=== PATIENT | female | born 1960 | race Caucasian/White ===

== ENCOUNTER → 2016-09-10 | Outpatient (CLI) | payer MEDICAID | LOC: VM.MRI 09:14 | PROVIDERS: ATTEND Internal Medicine | DX: M54.10 Radiculopathy, site unspecified (principal); M46.96 Unspecified inflammatory spondylopathy, lumbar region; Z98.1 Arthrodesis status | CPT/HCPCS: 72148 ==

== ENCOUNTER 2017-12-08 04:37 | Observation (INO) | payer MEDICAID ==
[2017-12-08] MEDS ORDERED: Sodium Chloride 0.9% 10 ML Syringe FLUSH PRN (05:03)
[2017-12-08] MEDS ORDERED: Albuterol/Ipratropium 3.0-0.5 MG/3 ML Neb Soln NEB ONE (05:04)
[2017-12-08] MEDS ORDERED: oxyCODONE 5 MG Tab PO ONE (05:23)
[2017-12-08] MEDS ORDERED: methylPREDNISolone Sodium Succinate 125 MG/2 ML SDV IV ONE (06:27)
[2017-12-08] MEDS ORDERED: LORazepam 2 MG/ML SDV IVPUSH ONE (06:27)
[2017-12-08 06:48] LABS: CHLORIDE,CL 105 mmol/L (98-107); SODIUM,NA 140 mmol/L (136-145)
--- NOTE | 2017-12-08 08:21 | EDM.PDOC ---
ED HPI GENERAL MEDICAL PROBLEM - General Chief Complaint: Respiratory Problem Stated Complaint: DYSPNEA Time Seen by Provider: 12/08/17 04:42 Source of Information: Reports: Patient, Family History Limitations: Reports: No Limitations - History of Present Illness INITIAL COMMENTS - FREE TEXT/NARRATIVE: This ER note can be used as an admission H and P. Pt. underwent a Lynx procedure on Tuesday and has been having issues with breathing difficulty since the surgery. Pt. was admitted overnight due to wheezing, post op pain, and increased work of breathing. Pt. was discharged the next day and states that she has been having respiratory difficulty since discharge. Pt. has a history of asthma and states that she feels like her asthma symptoms are causing her problems. She denies any fever or chills. No chest pain or shortness of breath. She also complains that she is unable to take a deep breath/cough due to her post operative pain. Onset: Today Onset Date: 12/06/17 Duration: Constant Location: Reports: Chest, Abdomen Quality: Reports: Ache Severity: Moderate Associated Symptoms: Reports: Loss of Appetite, Malaise, Shortness of Breath Abdomen Pain Score (Numeric/FACES): 6 - Related Data Allergies Allergy/AdvReac Type Severity Reaction Status Date / Time iodine Allergy Rash Verified 12/08/17 05:00 Latex, Natural Rubber Allergy Rash Verified 12/08/17 05:00 methadone Allergy Rash Verified 12/08/17 05:00 piroxicam [From Feldene] Allergy Hives Verified 12/08/17 05:00 procaine HCl [From Novocain] Allergy Shortness Verified 12/08/17 05:00 of Breath propoxyphene napsylate Allergy Cannot Verified 12/08/17 05:00 [From Darvocet-N 100] Remember cephalexin monohydrate AdvReac Nausea Verified 12/08/17 05:00 [From Keflex] METALS Allergy Cannot Uncoded 12/08/17 05:00 Remember CONTRAST DYE AdvReac Nausea Uncoded 12/08/17 05:00 pumpkin flavor AdvReac Nausea and Uncoded 12/08/17 05:00 Vomiting Home Meds: Home Meds Albuterol [Ventolin HFA] 2 puff INH Q4H PRN 08/14/13 [History] Simvastatin [Zocor] 40 mg PO BEDTIME 12/10/13 [History] Cyanocobalamin (Vitamin B12) [Vitamin B12] 2,000 mcg PO BEDTIME 04/08/15 [ History] PARoxetine [Paxil] 60 mg PO DAILY 04/08/15 [History] Acetaminophen [Tylenol] 650 mg PO 6XDAY 12/08/17 [History] Albuterol/Ipratropium [DuoNeb 3.0-0.5 MG/3 ML] 3 ml INH Q4HR PRN 12/08/17 [ History] Budesonide [Pulmicort] 0.5 mg IH BID 12/08/17 [History] Celecoxib 200 mg PO BID 12/08/17 [History] Cyclobenzaprine [Flexeril] 10 mg PO TID PRN 12/08/17 [History] Fluticasone Propionate [Flonase] 16 gm NS ASDIRECTED PRN 12/08/17 [History] Formoterol Fumarate [Perforomist] 20 mcg IH BID 12/08/17 [History] Gabapentin [Neurontin] 300 mg PO BEDTIME 12/08/17 [History] Mirtazapine 45 mg PO BEDTIME 12/08/17 [History] Montelukast [Singulair] 10 mg PO DAILY 12/08/17 [History] Tiotropium [Spiriva] 18 mcg INH BID 12/08/17 [History] oxyCODONE 2 tab PO Q4H PRN 12/08/17 [History] Past Medical History Other Musculoskeletal History: has had prior surgeries - Past Surgical History GI Surgical History: Reports: Other (See Below) Other GI Surgeries/Procedures: linx procedure Social & Family History - Tobacco Use Smoking Status *Q: Never Smoker Second Hand Smoke Exposure: Yes - Alcohol Use Days Per Week of Alcohol Use: 0 - Recreational Drug Use Recreational Drug Use: No Drug Use in Last 12 Months: No ED ROS GENERAL - Review of Systems Review Of Systems: See Below Constitutional: Reports: No Symptoms HEENT: Reports: No Symptoms Respiratory: Reports: Shortness of Breath Cardiovascular: Reports: No Symptoms Endocrine: Reports: No Symptoms GI/Abdominal: Reports: Abdominal Pain (post op). Denies: Black Stool, Bloody Stool, Diarrhea, Hematochezia, Melena : Reports: No Symptoms Musculoskeletal: Reports: No Symptoms Skin: Reports: No Symptoms Neurological: Reports: No Symptoms Psychiatric: Reports: No Symptoms Hematologic/Lymphatic: Reports: No Symptoms Immunologic: Reports: No Symptoms ED EXAM, GENERAL - Physical Exam Exam: See Below Exam Limited By: No Limitations General Appearance: Alert, WD/WN, No Apparent Distress Eye Exam: Bilateral Eye: Normal Fundi, Normal Inspection, PERRL Ears: Normal External Exam, Normal Canal, Hearing Grossly Normal, Normal TMs Ear Exam: Bilateral Ear: Auricle Normal, Canal Normal, TM normal Nose: Normal Inspection, Normal Mucosa, No Blood Throat/Mouth: Normal Inspection, Normal Lips, Normal Teeth, Normal Gums, Normal Oropharynx, Normal Voice, No Airway Compromise Head: Atraumatic, Normocephalic Neck: Normal Inspection, Supple, Non-Tender, Full Range of Motion Respiratory/Chest: Rhonchi, Wheezing, Other (minimal wheezing. Ronchi is heard primarily on auscultation of her upper airways) Cardiovascular: Normal Peripheral Pulses, Regular Rate, Rhythm, No Edema, No Gallop, No JVD, No Murmur, No Rub Peripheral Pulses: 3+: Radial (L), Radial (R) GI/Abdominal: Normal Bowel Sounds, Soft, No Distention, Tender (diffusely tender throughout). No: No Organomegaly (Female) Exam: Normal External Exam, Normal Speculum Exam, Normal Bimanual Exam Rectal (Female) Exam: Normal Exam, Normal Rectal Tone Back Exam: Normal Inspection, Full Range of Motion, NT Extremities: Normal Inspection, Normal Range of Motion, Non-Tender, Normal Capillary Refill, No Pedal Edema Neurological: Alert, Oriented, CN II-XII Intact, Normal Cognition, Normal Gait, Normal Reflexes, No Motor/Sensory Deficits Psychiatric: Normal Affect, Normal Mood Skin Exam: Warm, Dry, Intact, Normal Color, No Rash Lymphatic: No Adenopathy EKG INTERPRETATION Rhythm: NSR [place]: Normal P-Wave: Present QRS: Normal ST-T: Normal QT: Normal Course - Vital Signs Last Recorded V/S: Last Vital Signs Temp 37.1 C 12/08/17 04:42 Pulse 84 12/08/17 06:44 Resp 29 H 12/08/17 06:44 BP 121/67 12/08/17 06:44 Pulse Ox 91 L 12/08/17 06:44 - Orders/Labs/Meds Orders: Active Orders 24 hr Category Date Time Status Patient Status [ADT] Routine ADT 12/08/17 08:24 Active EKG Documentation Completion [RC] STAT Care 12/08/17 05:04 Active Oxygen Therapy [RC] PRN Care 12/08/17 08:02 Inactive RT Aerosol Therapy [RC] ASDIRECTED Care 12/08/17 05:05 Active Chest 2V [CR] Stat Exams 12/08/17 05:03 Taken Sodium Chloride 0.9% [Saline Flush] Med 12/08/17 05:03 Active 10 ml FLUSH ASDIRECTED PRN Peripheral IV Insertion Adult [OM.PC] Routine Oth 12/08/17 05:04 Ordered Medication Orders Sodium Chloride (Saline Flush) 10 ml FLUSH ASDIRECTED PRN PRN Reason: Keep Vein Open Labs: Laboratory Tests 12/08/17 12/08/17 12/08/17 Range/Units 06:15 06:15 07:00 WBC 6.1 (4.0-10.0) x10^3/uL RBC 4.41 (4.00-5.50) x10^6/uL Hgb 13.1 D (12.0-16.0) g/dL Hct 40.0 (33.0-47.0) % MCV 90.7 (78.0-93.0) fL MCH 29.7 (26.0-32.0) pg MCHC 32.8 (32.0-36.0) g/dL RDW Coeff of Perla 14.2 (10.0-15.0) % Plt Count 269 D (130-400) x10^3/uL Neut % (Auto) 50.7 (50.0-80.0) % Lymph % (Auto) 35.7 (25.0-50.0) % [place] % (Auto) 9.7 (2.0-11.0) % Eos % (Auto) 3.6 (0.0-4.0) % Baso % (Auto) 0.3 (0.2-1.2) % PT 10.0 (9.8-11.8) SEC INR 0.9 L (2.0-3.5) Sodium 140 (136-145) mmol/L Potassium 3.6 (3.5-5.1) mmol/L Chloride 105 (98-107) mmol/L Carbon Dioxide 25 (21-32) mmol/L Anion Gap 13.6 BUN 18 (7-18) mg/dL Creatinine 0.9 (0.55-1.02) mg/dL Est Cr Clr Drug Dosing TNP Estimated GFR (MDRD) > 60 Glucose 121 H (74-106) mg/dL Lactic Acid (0.4-2.0) mmol/L Calcium 9.5 (8.5-10.1) mg/dL Corrected Calcium 9.98 (8.5-10.1) mg/dL Total Bilirubin 0.3 (0.2-1.0) mg/dL AST 27 (15-37) U/L ALT 49 (14-59) U/L Alkaline Phosphatase 174 H (46-116) U/L Troponin I < 0.017 (<=0.056) ng/mL C-Reactive Protein 1.5 H (<=0.9) mg/dL NT-Pro-B Natriuret Pep 31 (<=125) pg/mL Total Protein 7.1 (6.4-8.2) g/dL Albumin 3.4 (3.4-5.0) g/dL Globulin 3.7 Albumin/Globulin Ratio 0.92 04/18 Range/Units 07:00 WBC (4.0-10.0) x10^3/uL RBC (4.00-5.50) x10^6/uL Hgb (12.0-16.0) g/dL Hct (33.0-47.0) % MCV (78.0-93.0) fL MCH (26.0-32.0) pg MCHC (32.0-36.0) g/dL RDW Coeff of Perla (10.0-15.0) % Plt Count (130-400) x10^3/uL Neut % (Auto) (50.0-80.0) % Lymph % (Auto) (25.0-50.0) % [place] % (Auto) (2.0-11.0) % Eos % (Auto) (0.0-4.0) % Baso % (Auto) (0.2-1.2) % PT (9.8-11.8) SEC INR (2.0-3.5) Sodium (136-145) mmol/L Potassium (3.5-5.1) mmol/L Chloride (98-107) mmol/L Carbon Dioxide (21-32) mmol/L Anion Gap BUN (7-18) mg/dL Creatinine (0.55-1.02) mg/dL Est Cr Clr Drug Dosing Estimated GFR (MDRD) Glucose (74-106) mg/dL Lactic Acid 2.1 H* (0.4-2.0) mmol/L Calcium (8.5-10.1) mg/dL Corrected Calcium (8.5-10.1) mg/dL Total Bilirubin (0.2-1.0) mg/dL AST (15-37) U/L ALT (14-59) U/L Alkaline Phosphatase (46-116) U/L Troponin I (<=0.056) ng/mL C-Reactive Protein (<=0.9) mg/dL NT-Pro-B Natriuret Pep (<=125) pg/mL Total Protein (6.4-8.2) g/dL Albumin (3.4-5.0) g/dL Globulin Albumin/Globulin Ratio Meds: Medications Generic Name Dose Route Start Last Admin Trade Name Freq PRN Reason Stop Dose Admin Sodium Chloride 10 ml 12/08/17 05:03 Saline Flush FLUSH ASDIRECTED PRN Keep Vein Open Discontinued Medications Generic Name Dose Route Start Last Admin Trade Name Freq PRN Reason Stop Dose Admin Albuterol/Ipratropium 3 ml 12/08/17 05:04 12/08/17 05:20 Duoneb 3.0-0.5 Mg/3 Ml NEB 12/08/17 05:05 3 ml ONETIME ONE Administration Lorazepam 1 mg 12/08/17 06:27 12/08/17 06:45 Ativan IVPUSH 12/08/17 06:28 1 mg ONETIME ONE Administration Methylprednisolone Sodium Succinate 125 mg 12/08/17 06:27 12/08/17 06:48 Solu-Medrol IV 12/08/17 06:28 125 mg ONETIME ONE Administration Oxycodone HCl 5 mg 12/08/17 05:23 12/08/17 05:55 Oxycodone PO 12/08/17 05:24 5 mg ONETIME ONE Administration - Radiology Interpretation Free Text/Narrative:: No obvious infiltrate seen. Pt. didn't take a deep breath. Large amount of air seen in abdomen consistent with postoperative changes. - Re-Assessments/Exams Free Text/Narrative Re-Assessment/Exam: 12/08/17 08:51 Pt. was given a duoneb breathing treatment and solu medrol 125mg IV. She is requesting pain medication, and was given oxycodone 5mg PO. She was also quite anxious and was given ativan 1mg IV. Departure - Departure Time of Disposition: 08:48 Disposition: Refer to Observation Condition: Good Clinical Impression: Acute asthma, Asthma exacerbation - Discharge Information Referrals: PCP,Unobtain [Primary Care Provider] - Forms: ED Department Discharge - My Orders Last 24 Hours: My Active Orders 12/08/17 05:03 Chest 2V [CR] Stat Sodium Chloride 0.9% [Saline Flush] 10 ml FLUSH ASDIRECTED PRN 12/08/17 05:04 EKG Documentation Completion [RC] STAT Peripheral IV Insertion Adult [OM.PC] Routine 12/08/17 05:05 RT Aerosol Therapy [RC] ASDIRECTED 12/08/17 08:02 Oxygen Therapy [RC] PRN 12/08/17 08:24 Patient Status [ADT] Routine - Assessment/Plan Last 24 Hours: My Active Orders 12/08/17 05:03 Chest 2V [CR] Stat Sodium Chloride 0.9% [Saline Flush] 10 ml FLUSH ASDIRECTED PRN 12/08/17 05:04 EKG Documentation Completion [RC] STAT Peripheral IV Insertion Adult [OM.PC] Routine 12/08/17 05:05 RT Aerosol Therapy [RC] ASDIRECTED 12/08/17 08:02 Oxygen Therapy [RC] PRN 12/08/17 08:24 Patient Status [ADT] Routine Assessment:: asthma exacerbation Plan: Admit observation. Admission was offered to Dr. Cintron out of courtesy. Will have her work with incentive spirometry and ambulation. She needs to improve pulmonary toilet or runs the risk of developing pneumonia. Will reevaluate a chest x-ray later this afternoon, as her inspiration on her initial exam was supoptimal. Pt. is a code level 1.
[2017-12-08] MEDS ORDERED: oxyCODONE 5 MG Tab PO PRN (09:06)
[2017-12-08] MEDS ORDERED: Cyclobenzaprine 10 MG Tab PO PRN (09:06)
[2017-12-08] MEDS ORDERED: Albuterol/Ipratropium 3.0-0.5 MG/3 ML Neb Soln INH PRN (09:30)
[2017-12-08] MEDS: PARoxetine 20 MG Tab PO SCH (09:43)
[2017-12-08] MEDS: Celecoxib 100 MG Cap PO SCH ×2 (09:43→19:44)
[2017-12-08] MEDS: Budesonide 0.5 MG/2 ML Neb Susp INH SCH ×2 (10:02→19:45)
[2017-12-08] MEDS ORDERED: Albuterol 0.083% 2.5 MG/3 ML Neb Soln INH PRN (11:00)
[2017-12-08] MEDS ORDERED: Acetaminophen 325 MG Tab PO SCH (11:00)
[2017-12-08] MEDS: Albuterol/Ipratropium 3.0-0.5 MG/3 ML Neb Soln NEB SCH ×4 (11:04→22:23)
[2017-12-08] MEDS ORDERED: Magnesium Hydroxide 400 MG/5 ML Susp 30 ML Cup PO ONE (11:23)
[2017-12-08] MEDS: Fluticasone Propionate Nasal Spray 16 GM Bottle NASBOTH SCH (11:43)
[2017-12-08] MEDS ORDERED: Albuterol 0.083% 2.5 MG/3 ML Neb Soln INH SCH (13:00)
[2017-12-08] MEDS ORDERED: Ipratropium 0.02% 0.5 MG/2.5 ML Neb Soln INH SCH (13:00)
[2017-12-08] MEDS: oxyCODONE 5 MG Tab PO PRN (16:24)
[2017-12-08] MEDS: methylPREDNISolone Sodium Succinate 40 MG/1 ML SDV IVPUSH SCH (18:22)
[2017-12-08] MEDS ORDERED: Gabapentin 300 MG Cap PO SCH (20:00)
[2017-12-08] MEDS ORDERED: Montelukast 10 MG Tab PO SCH (20:00)
[2017-12-08] MEDS ORDERED: Sodium Phosphate,Monobasic/Sodium Phosphate,Dibasic Enema 133 ML Bottle RECTAL ONE (20:00)
[2017-12-08] MEDS ORDERED: Mirtazapine 15 MG Tab PO SCH (20:00)
[2017-12-08] MEDS ORDERED: Simvastatin 40 MG Tab PO SCH (20:00)
[2017-12-08] MEDS ORDERED: Cyanocobalamin (Vitamin B12) 1,000 MCG Tab PO SCH (20:00)
[2017-12-09] MEDS: Albuterol/Ipratropium 3.0-0.5 MG/3 ML Neb Soln NEB SCH ×4 (02:59→14:30)
[2017-12-09] MEDS: methylPREDNISolone Sodium Succinate 40 MG/1 ML SDV IVPUSH SCH (06:08)
[2017-12-09] MEDS: Budesonide 0.5 MG/2 ML Neb Susp INH SCH (07:11)
[2017-12-09 07:34] LABS: CHLORIDE,CL 107 mmol/L (98-107); SODIUM,NA 141 mmol/L (136-145)
[2017-12-09] MEDS: PARoxetine 20 MG Tab PO SCH (09:04)
[2017-12-09] MEDS: Celecoxib 100 MG Cap PO SCH (09:06)
[2017-12-09] MEDS: Fluticasone Propionate Nasal Spray 16 GM Bottle NASBOTH SCH (09:10)
[2017-12-09] MEDS ORDERED: Magnesium Citrate Solution 296 ML Bottle PO ONE (10:36)
[2017-12-09] MEDS: oxyCODONE 5 MG Tab PO PRN (11:43)
--- NOTE | 2017-12-09 14:37 | PCM.DCSUM1 ---
Discharge Summary - Hospital Course HPI Initial Comments: Patient presented to the ED at [facility] yesterday complaining of trouble breathing. Pt. underwent a Lynx procedure on Tuesday and has been having issues with breathing difficulty since the surgery. Pt. was admitted overnight due to wheezing, post op pain, and increased work of breathing. Pt. was discharged the next day and states that she has been having respiratory difficulty since discharge. Pt. has a history of asthma and states that she feels like her asthma symptoms are causing her problems. She denies any fever or chills. No chest pain or shortness of breath. She also complains that she is unable to take a deep breath /cough due to her post operative pain. Patient is currently taking Oxycodone for pain. - Discharge Data Discharge Date: 12/09/17 Discharge Disposition: Home, Self-Care 01 Condition: Good - Discharge Diagnosis/Problem(s) (1) Asthma exacerbation SNOMED Code(s): 189200248 ICD Code: J45.901 - UNSPECIFIED ASTHMA WITH (ACUTE) EXACERBATION Status: Acute Priority: Medium Current Visit: Yes Qualifiers: Asthma severity: mild Asthma persistence: intermittent Qualified Code(s) : J45.21 - Mild intermittent asthma with (acute) exacerbation (2) Fecal retention SNOMED Code(s): 29203951 ICD Code: K59.00 - CONSTIPATION, UNSPECIFIED Status: Acute Priority: Medium Current Visit: Yes Qualifiers: Constipation type: slow transit constipation Qualified Code(s): K59.01 - Slow transit constipation - Patient Summary/Data Operative Procedure(s) Performed: None Consults: Physical Therapy Labs Pending at D/C: None Recommended Follow-up Testing/Procedures: None Hospital Course: From a respiratory standpoint, patient did well. No worsening acute problems. Patient has a cough, but it is believed it is from her uncontrolled GERD. No SOB. Patient is having issues with constipation that started before she even had surgery last Tuesday. She was given Mag Citrate, Enema, MOM without any good results. No issues with urination. Patient is ambulating in the hallways without problems. Pain has been controlled. Her pain does worsen with trying to have a BM. - Patient Instructions Diet: Heart Healthy Diet Activity: As Tolerated (need to walk more at home), No Strenuous Activities Driving: Do Not Drive Showering/Bathing: May Shower Wound/Incision Care: Keep Operative Site/Wound Site Clean and Dry Notify Provider of: Fever, Increased Pain, Nausea and/or Vomiting - Discharge Plan Home Medications: Home Meds Albuterol [Ventolin HFA] 2 puff INH Q4H PRN 08/14/13 [History] Simvastatin [Zocor] 40 mg PO BEDTIME 08/14/13 [History] Cyanocobalamin (Vitamin B12) [Vitamin B12] 2,000 mcg PO BEDTIME 04/08/15 [ History] PARoxetine [Paxil] 60 mg PO DAILY 04/08/15 [History] Acetaminophen [Tylenol] 650 mg PO Q6H 12/08/17 [History] Albuterol/Ipratropium [DuoNeb 3.0-0.5 MG/3 ML] 3 ml INH Q4HR PRN 12/08/17 [ History] Budesonide [Pulmicort] 0.5 mg NEB BID 12/08/17 [History] Celecoxib 200 mg PO BID 12/08/17 [History] Cholecalciferol (Vitamin D3) [D3-2000] 2,000 units PO TID 12/08/17 [History] Cyclobenzaprine [Flexeril] 10 mg PO TID PRN 12/08/17 [History] Fluticasone Propionate [Flonase] 2 spray NASBOTH DAILY PRN 12/08/17 [History] Formoterol Fumarate [Perforomist] 20 mcg NEB BID 12/08/17 [History] Gabapentin [Neurontin] 300 mg PO BEDTIME 12/08/17 [History] Mirtazapine 45 mg PO BEDTIME 12/08/17 [History] Montelukast [Singulair] 10 mg PO DAILY 12/08/17 [History] Non-Formulary Medication [NF Drug] 1 tab PO BID 12/08/17 [History] Non-Formulary Medication [NF Drug] 1 tab PO BID 12/08/17 [History] Non-Formulary Medication [NF Drug] 1 tab PO DAILY@0800 12/08/17 [History] Non-Formulary Medication [NF Drug] 2 tab PO BID 12/08/17 [History] Non-Formulary Medication [NF Drug] 2 tab PO DAILY@1200,1800 12/08/17 [History] Tiotropium [Spiriva HandiHaler] 18 mcg INH BID 12/08/17 [History] oxyCODONE 10 mg PO Q4H PRN 12/08/17 [History] Patient Handouts: Constipation, Adult, Preventing Constipation After Surgery, Asthma, Adult Referrals: Lisa Cintron DO [Physician] - 12/13/17 - Discharge Summary/Plan Comment DC Time >30 min.: Yes Discharge Summary/Plan Comment: Patient will be discharge home today as her breathing is at baseline. No issues with wheezing or SOB. Patient does have a cough but I believe this is secondary to uncontrolled GERD. Will keep home medications the same. Recommend patient use OTC stool softeners. She may also start MiraLax. Patient needs to keep ambulating at home to help with BM's. Lots of water. Patient is scheduled for a follow up with her PCP this Wednesday, December 13, 2017. - General Info Date of Service: 12/09/17 Admission Dx/Problem (Free Text: Acute Asthma exacerbation Functional Status: Reports: Pain Controlled, Tolerating Diet, Ambulating, Urinating Numeric/FACES Score: 0 - Review of Systems General: Denies: Fever, Weakness Pulmonary: Reports: Cough. Denies: Shortness of Breath, Sputum Cardiovascular: Denies: Chest Pain, Palpitations Gastrointestinal: Reports: Constipation. Denies: Abdominal Pain, Nausea, Vomiting Skin: Reports: No Symptoms Neurological: Reports: No Symptoms - Patient Data Vitals - Most Recent: Last Vital Signs Temp 37.1 C 12/09/17 09:18 Pulse 88 12/09/17 09:18 Resp 28 H 12/09/17 09:18 BP 134/74 12/09/17 09:18 Pulse Ox 92 L 12/09/17 09:18 Weight - Most Recent: 97.976 kg I&O - Last 24 hours: Intake & Output 12/08/17 12/09/17 12/09/17 22:59 06:59 14:59 Intake Total 610 360 Output Total 400 Balance 610 -400 360 Lab Results - Last 24 hrs: Laboratory Results - last 24 hr 12/08/17 12/09/17 12/09/17 Range/Units 21:02 06:15 06:27 WBC 9.9 (4.0-10.0) x10^3/uL RBC 4.23 (4.00-5.50) x10^6/uL Hgb 12.4 (12.0-16.0) g/dL Hct 37.9 (33.0-47.0) % MCV 89.6 (78.0-93.0) fL MCH 29.3 (26.0-32.0) pg MCHC 32.7 (32.0-36.0) g/dL RDW Coeff of Perla 14.3 (10.0-15.0) % Plt Count 318 (130-400) x10^3/uL Add Manual Diff Yes Neutrophils % (Manual) 84 H (50-80) % Band Neutrophils % 2 (0-6) % Lymphocytes % (Manual) 9 L (25-50) % Monocytes % (Manual) 5 (2-11) % Platelet Estimate Adequate Anisocytosis 1+ slight H Sodium 141 (136-145) mmol/L Potassium 4.9 (3.5-5.1) mmol/L Chloride 107 (98-107) mmol/L Carbon Dioxide 23 (21-32) mmol/L Anion Gap 15.9 BUN 16 (7-18) mg/dL Creatinine 0.9 (0.55-1.02) mg/dL Est Cr Clr Drug Dosing 63.78 mL/min Estimated GFR (MDRD) > 60 Glucose 128 H (74-106) mg/dL Lactic Acid 3.6 H* (0.4-2.0) mmol/L Calcium 9.6 (8.5-10.1) mg/dL Med Orders - Current: Current Medications Albuterol/Ipratropium (Duoneb 3.0-0.5 Mg/3 Ml) 3 ml INH Q4H PRN PRN Reason: SHORTNESS OF BREATH Albuterol/Ipratropium (Duoneb 3.0-0.5 Mg/3 Ml) 3 ml NEB Q4HRRT [facility] Last Admin: 12/09/17 14:30 Dose: 3 ml Budesonide (Pulmicort) 0.5 mg INH BIDRT [facility] Last Admin: 12/09/17 07:11 Dose: 0.5 mg Celecoxib (Celebrex) 200 mg PO BID [facility] Last Admin: 12/09/17 09:06 Dose: 200 mg Cyanocobalamin (Vitamin B12) 2,000 mcg PO BEDTIME [facility] Last Admin: 12/08/17 19:43 Dose: 2,000 mcg Cyclobenzaprine HCl (Flexeril) 10 mg PO TID PRN PRN Reason: Muscle Spasm Fluticasone Propionate (Flonase) 0 gm NASBOTH DAILY [facility] Last Admin: 12/09/17 09:10 Dose: 2 spray Gabapentin (Neurontin) 300 mg PO BEDTIME [facility] Last Admin: 12/08/17 19:44 Dose: 300 mg Methylprednisolone Sodium Succinate (Solu-Medrol) 40 mg IVPUSH Q12H [facility] Last Admin: 12/09/17 06:08 Dose: 40 mg Mirtazapine (Remeron) 45 mg PO BEDTIME [facility] Last Admin: 12/08/17 19:43 Dose: 45 mg Montelukast Sodium (Singulair) 10 mg PO BEDTIME [facility] Last Admin: 12/08/17 19:44 Dose: 10 mg Oxycodone HCl (Oxycodone) 5 mg PO Q4H PRN PRN Reason: Pain Last Admin: 12/09/17 11:43 Dose: 5 mg Paroxetine HCl (Paxil) 60 mg PO DAILY [facility] Last Admin: 12/09/17 09:04 Dose: 60 mg Simvastatin (Zocor) 40 mg PO BEDTIME [facility] Last Admin: 12/08/17 19:45 Dose: 40 mg Sodium Chloride (Saline Flush) 10 ml FLUSH ASDIRECTED PRN PRN Reason: Keep Vein Open Last Admin: 12/09/17 06:08 Dose: 10 ml Discontinued Medications Acetaminophen (Tylenol) 650 mg PO 6XDAY [facility] Last Admin: 12/08/17 11:42 Dose: Not Given Albuterol (Proventil Neb Soln) 2.5 mg INH Q4H PRN PRN Reason: ASTHMA Albuterol (Proventil Neb Soln) 2.5 mg INH Q6HRRT [facility] Albuterol/Ipratropium (Duoneb 3.0-0.5 Mg/3 Ml) 3 ml NEB ONETIME ONE Stop: 12/08/17 05:05 Last Admin: 12/08/17 05:20 Dose: 3 ml Ipratropium [place] (Atrovent) 0.5 mg INH Q6HRRT [facility] Lorazepam (Ativan) 1 mg IVPUSH ONETIME ONE Stop: 12/08/17 06:28 Last Admin: 12/08/17 06:45 Dose: 1 mg Magnesium Citrate (Citrate Of Magnesia) 296 ml PO ONETIME ONE Stop: 12/09/17 10:37 Last Admin: 12/09/17 10:58 Dose: 296 ml Magnesium Hydroxide (Milk Of Magnesia) 30 ml PO ONETIME ONE Stop: 12/08/17 11:24 Last Admin: 12/08/17 11:34 Dose: 30 ml Methylprednisolone Sodium Succinate (Solu-Medrol) 125 mg IV ONETIME ONE Stop: 12/08/17 06:28 Last Admin: 12/08/17 06:48 Dose: 125 mg Oxycodone HCl (Oxycodone) 5 mg PO ONETIME ONE Stop: 12/08/17 05:24 Last Admin: 12/08/17 05:55 Dose: 5 mg Oxycodone HCl (Oxycodone) mg PO Q4H PRN PRN Reason: Pain Sodium Biphosphate/Sodium Phosphate (Fleet Enema) 133 ml RECTAL ONETIME ONE Stop: 12/08/17 20:01 Last Admin: 12/08/17 19:45 Dose: 133 ml - Exam General: Reports: Alert, Cooperative, No Acute Distress Lungs: Reports: Clear to Auscultation, Normal Respiratory Effort Cardiovascular: Reports: Regular Rate, Regular Rhythm GI/Abdominal Exam: Normal Bowel Sounds, Soft, Non-Tender Extremities: Normal Inspection Skin: Reports: Warm, Dry, Intact Wound/Incisions: Reports: Healing Well Neurological: Reports: No New Focal Deficit *Q Meaningful Use (DIS) - VTE *Q VTE Mechanical Contraindications *Q: At Risk for Falls
[2017-12-09 15:07] VITALS: BP 134/61
== END 2017-12-09 15:55 | disposition home or self-care (01) ==
LOC: VM.ED 04:37 → VM.MS 08:24
PROVIDERS: ADMIT Physician Assistant; ATTEND Physician Assistant
DX: J45.21 Mild intermittent asthma with (acute) exacerbation (principal); K59.01 Slow transit constipation; Z79.899 Other long term (current) drug therapy; Z79.51 Long term (current) use of inhaled steroids; Z88.8 Allergy status to other drugs, medicaments and biological substances; Z91.040 Latex allergy status; Z88.4 Allergy status to anesthetic agent; Z88.1 Allergy status to other antibiotic agents; Z91.048 Other nonmedicinal substance allergy status; Z91.041 Radiographic dye allergy status; Z91.018 Allergy to other foods
CPT/HCPCS: 36415; 71046; 74022; 80048; 80053; 83605; 83880; 84484; 85025; 85610; 86140; 93005; 94640; 94760; 96374; 96375; 97161; 99285; A9270; J2060; J2920; J2930; J7050; 96376; G0378

== ENCOUNTER 2018-01-28 14:27 | Emergency (ER) | payer MEDICAID ==
[2018-01-28] MEDS ORDERED: Ondansetron 4 MG Tab.DIS PO ONE ×2 (14:38→15:52)
[2018-01-28 14:39] VITALS: BP 127/78
--- NOTE | 2018-01-28 14:47 | EDM.PDOC ---
ED HPI GENERAL MEDICAL PROBLEM - General Chief Complaint: Gastrointestinal Problem Stated Complaint: THROWING UP BRIGHT RED BLOOD; HAD ENDOSCOPY DONE Time Seen by Provider: 01/28/18 14:40 Source of Information: Reports: Patient History Limitations: Reports: No Limitations - History of Present Illness INITIAL COMMENTS - FREE TEXT/NARRATIVE: Patient comes into the emergency department with complaint of throwing up blood. Patient states that she has thrown up 4 times the last 45 minutes. Patient just had her esophagus dilated this week in [place]. She did contact her surgeon who advised her to come into the emergency department to get checked out. Patient denies any burning or squeezing sensation in her esophagus. She states that she feels nauseated and her stomach is sore. Patient denies any fever lightheadedness, dizziness, chest pain, or shortness of breath. Onset: Sudden Improves with: Reports: None Worsens with: Reports: None Associated Symptoms: Reports: Nausea/Vomiting - Related Data Allergies Allergy/AdvReac Type Severity Reaction Status Date / Time cephalexin monohydrate Allergy Severe Hives Verified 01/28/18 14:42 [From Keflex] Latex, Natural Rubber Allergy Severe Hives Verified 01/28/18 14:42 iodine Allergy Rash Verified 01/28/18 14:42 methadone Allergy Rash Verified 01/28/18 14:42 piroxicam [From Feldene] Allergy unknown Verified 01/28/18 14:42 procaine HCl [From Novocain] Allergy Shortness Verified 01/28/18 14:42 of Breath propoxyphene napsylate AdvReac Hallucinati Verified 01/28/18 14:42 [From Darvocet-N 100] ons METALS Allergy Cannot Uncoded 12/08/17 05:00 Remember CONTRAST DYE AdvReac Severe Hives Uncoded 12/08/17 12:10 pumpkin flavor AdvReac Nausea and Uncoded 12/08/17 05:00 Vomiting Home Meds: Home Meds Albuterol [Ventolin HFA] 2 puff INH Q4H PRN 08/14/13 [History] Simvastatin [Zocor] 40 mg PO BEDTIME 08/14/13 [History] Cyanocobalamin (Vitamin B12) [Vitamin B12] 2,000 mcg PO BEDTIME 04/08/15 [ History] PARoxetine [Paxil] 60 mg PO DAILY 04/08/15 [History] Acetaminophen [Tylenol] 650 mg PO Q6H 12/08/17 [History] Albuterol/Ipratropium [DuoNeb 3.0-0.5 MG/3 ML] 3 ml INH Q4HR PRN 12/08/17 [ History] Budesonide [Pulmicort] 0.5 mg NEB BID 12/08/17 [History] Celecoxib 200 mg PO BID 12/08/17 [History] Cholecalciferol (Vitamin D3) [D3-2000] 2,000 units PO DAILY 12/08/17 [History] Cyclobenzaprine [Flexeril] 10 mg PO TID PRN 12/08/17 [History] Fluticasone Propionate [Flonase] 2 spray NASBOTH DAILY PRN 12/08/17 [History] Formoterol Fumarate [Perforomist] 20 mcg NEB BID 12/08/17 [History] Gabapentin [Neurontin] 500 mg PO BEDTIME 12/08/17 [History] Mirtazapine 45 mg PO BEDTIME 12/08/17 [History] Montelukast [Singulair] 10 mg PO DAILY 12/08/17 [History] Non-Formulary Medication [NF Drug] 1 tab PO BID 12/08/17 [History] Non-Formulary Medication [NF Drug] 1 tab PO DAILY 12/08/17 [History] Non-Formulary Medication [NF Drug] 1 tab PO DAILY@0800 12/08/17 [History] Non-Formulary Medication [NF Drug] 2 tab PO BID 12/08/17 [History] Non-Formulary Medication [NF Drug] 2 tab PO DAILY@1200,1800 12/08/17 [History] Tiotropium [Spiriva HandiHaler] 18 mcg INH BID 12/08/17 [History] oxyCODONE 10 mg PO Q4H PRN 12/08/17 [History] Past Medical History HEENT History: Reports: Other (See Below) Other HEENT History: botox injections to eyes for twitching Respiratory History: Reports: Asthma Gastrointestinal History: Reports: GERD 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 (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) Other OB/BYN History: complete 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 Musculoskeletal History: Reports: Other (See Below) Other Musculoskeletal History: has had prior surgeries Psychiatric History: Reports: Anxiety, Depression, PTSD - Past Surgical History GI Surgical History: Reports: Other (See Below) Other GI Surgeries/Procedures: linx procedure Social & Family History - Family History Family Medical History: Noncontributory - Caffeine Use Caffeine Use: Reports: Soda ED ROS GENERAL - Review of Systems Review Of Systems: See Below Constitutional: Reports: No Symptoms HEENT: Reports: No Symptoms Respiratory: Reports: No Symptoms Cardiovascular: Reports: No Symptoms Endocrine: Reports: No Symptoms GI/Abdominal: Reports: No Symptoms : Reports: No Symptoms Musculoskeletal: Reports: No Symptoms Skin: Reports: No Symptoms Neurological: Reports: No Symptoms Psychiatric: Reports: No Symptoms Hematologic/Lymphatic: Reports: No Symptoms Immunologic: Reports: No Symptoms ED EXAM, GI/ABD - Physical Exam Exam: See Below General Appearance: Alert, WD/WN, No Apparent Distress, Anxious Nose: Normal Inspection, Normal Mucosa, No Blood Throat/Mouth: Normal Inspection, Normal Lips, Normal Gums, Normal Oropharynx, Normal Voice, No Airway Compromise Head: Atraumatic, Normocephalic Neck: Normal Inspection, Supple, Non-Tender, Full Range of Motion Respiratory/Chest: No Respiratory Distress, Lungs Clear, No Accessory Muscle Use Cardiovascular: Normal Peripheral Pulses, Regular Rate, Rhythm, No Edema, No JVD GI/Abdominal Exam: Normal Bowel Sounds, Soft, Non-Tender, No Distention Extremities: Normal Inspection, Normal Range of Motion, Non-Tender, Normal Capillary Refill Neurological: Alert, Oriented, CN II-XII Intact, Normal Gait, Normal Reflexes Psychiatric: Normal Affect, Normal Mood Skin Exam: Warm, Dry, Intact, Normal Color, No Rash Lymphatic: No Adenopathy Course - Vital Signs Last Recorded V/S: Last Vital Signs Temp 36.6 C 01/28/18 14:30 Pulse 91 01/28/18 14:30 Resp 18 01/28/18 14:30 BP 127/78 01/28/18 14:30 Pulse Ox 98 01/28/18 14:30 - Orders/Labs/Meds Orders: Active Orders 24 hr Category Date Time Status Chest wo Cont [CT] Stat Exams 01/28/18 14:47 Taken Labs: Laboratory Tests 01/28/18 01/28/18 Range/Units 15:05 15:05 WBC 4.3 (4.0-10.0) x10^3/uL RBC 4.56 (4.00-5.50) x10^6/uL Hgb 13.2 (12.0-16.0) g/dL Hct 40.6 (33.0-47.0) % MCV 89.0 (78.0-93.0) fL MCH 28.9 (26.0-32.0) pg MCHC 32.5 (32.0-36.0) g/dL RDW Coeff of Perla 13.7 (10.0-15.0) % Plt Count 234 D (130-400) x10^3/uL Neut % (Auto) 55.4 (50.0-80.0) % Lymph % (Auto) 33.8 (25.0-50.0) % [place] % (Auto) 6.9 (2.0-11.0) % Eos % (Auto) 3.7 (0.0-4.0) % Baso % (Auto) 0.2 (0.2-1.2) % Sodium 143 (136-145) mmol/L Potassium 3.2 L D (3.5-5.1) mmol/L Chloride 107 (98-107) mmol/L Carbon Dioxide 21 (21-32) mmol/L Anion Gap 18.2 (10-20) mmol/L BUN 10 (7-18) mg/dL Creatinine 0.9 (0.55-1.02) mg/dL Est Cr Clr Drug Dosing TNP Estimated GFR (MDRD) > 60 Glucose 117 H (74-106) mg/dL Calcium 8.8 (8.5-10.1) mg/dL Corrected Calcium 8.96 (8.5-10.1) mg/dL Total Bilirubin 0.3 (0.2-1.0) mg/dL AST 21 (15-37) U/L ALT 35 (14-59) U/L Alkaline Phosphatase 186 H (46-116) U/L Total Protein 7.3 (6.4-8.2) g/dL Albumin 3.8 (3.4-5.0) g/dL Globulin 3.5 Albumin/Globulin Ratio 1.09 Meds: Medications Discontinued Medications Generic Name Dose Route Start Last Admin Trade Name Freq PRN Reason Stop Dose Admin Ondansetron HCl 4 mg 01/28/18 14:38 01/28/18 14:50 Zofran Odt PO 01/28/18 14:39 4 mg ONETIME ONE Administration - Radiology Interpretation CT Results Date: 01/28/18 (A new ring shaped metallic objects seen at the level of the gastroesophageal junction of the gastrointestinal tract. The esophagus is mildly dilated containing small amount of layering fluid/food debris) Departure - Departure Time of Disposition: 16:20 Disposition: Home, Self-Care 01 Condition: Good Clinical Impression: Vomiting - Discharge Information Forms: ED Department Discharge Additional Instructions: 1. rest 2. Increase her water intake 3. A liquid diet and soft food diet is recommended until Tuesday when the surgeon will contact you - Problem List Review Problem List Initiated/Reviewed/Updated: Yes - My Orders Last 24 Hours: My Active Orders 01/28/18 14:47 Chest wo Cont [CT] Stat - Assessment/Plan Last 24 Hours: My Active Orders 01/28/18 14:47 Chest wo Cont [CT] Stat Assessment:: 1. nausea/vomiting with blood x4 episodes Plan: 1. Labs completed in ER results reviewed with the pt 2. CT of the esophagus completed in the ER results reviewed with patient 3. Zofran given in the ER to help with the nausea 4. Consult was made with Dr. Aquino who did the procedure. He suggest the pt go back to a liquid and soft diet and he will follow up on tuesday with her and discuss next options. 5. Discussed with the pt what her surgeon suggests.
[2018-01-28 15:35] LABS: CHLORIDE,CL 107 mmol/L (98-107); SODIUM,NA 143 mmol/L (136-145)
== END 2018-01-28 16:21 | disposition home or self-care (01) ==
LOC: VM.ED 14:27
DX: K92.0 Hematemesis (principal); J45.909 Unspecified asthma, uncomplicated; K21.9 Gastro-esophageal reflux disease without esophagitis; F32.9 Major depressive disorder, single episode, unspecified; F41.9 Anxiety disorder, unspecified; Z88.1 Allergy status to other antibiotic agents; Z91.040 Latex allergy status; Z88.8 Allergy status to other drugs, medicaments and biological substances; Z79.899 Other long term (current) drug therapy
CPT/HCPCS: 36415; 71250; 80053; 85025; 99284; A9270

== ENCOUNTER 2020-10-10 12:29 | Emergency (ER) | payer MEDICAID ==
[2020-10-10 12:40] VITALS: BP 138/65; PULSE 78
[2020-10-10] MEDS ORDERED: Ketorolac 30 MG/ML SDV IM ONE (12:42)
[2020-10-10] MEDS ORDERED: Silver Sulfadiazine 1% Crm 50 GM Tube TOP ONE (12:43)
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
== END 2020-10-10 13:01 | disposition home or self-care (01) ==
LOC: VM.ED 12:29
DX: T21.11XA Burn of first degree of chest wall, initial encounter (principal); J45.909 Unspecified asthma, uncomplicated; Z88.1 Allergy status to other antibiotic agents; Z88.8 Allergy status to other drugs, medicaments and biological substances; Z91.040 Latex allergy status; Z91.048 Other nonmedicinal substance allergy status; Z91.041 Radiographic dye allergy status; Z91.018 Allergy to other foods; Z79.899 Other long term (current) drug therapy; X12.XXXA Contact with other hot fluids, initial encounter
CPT/HCPCS: 16000; 96372; 99283; 99284-25; A9270-GY; J1885

== ENCOUNTER 2024-01-20 09:56 | Emergency (ER) | payer MEDICAID ==
[2024-01-20] MEDS: Diazepam 2 MG Tab PO ONE (10:44)
[2024-01-20] MEDS: Acetaminophen 500 MG Tab PO ONE (10:44)
[2024-01-20] MEDS: Ibuprofen 200 MG Tab PO ONE (10:46)
[2024-01-20 10:58] LABS: BASOPHILS PERCENT AUTO 0.4 % (0.2-1.2); EOSINOPHILS ABSOLUTE AUTO 0.1 x10^3/uL (0.0-0.5); EOSINOPHILS PERCENT AUTO 3.1 % (0.0-4.0); HEMATOCRIT 37.1 % (33.0-47.0); HEMOGLOBIN 12.1 g/dL (12.0-16.0); IMMATURE GRAN ABSOLUTE AUTO 0.02 x10^3/uL (0.00-0.07); LYMPHOCYTES ABSOLUTE AUTO 1.6 x10^3/uL (1.0-4.8); LYMPHOCYTES PERCENT AUTO 34.6 % (25.0-50.0); MEAN CORPUSCULAR HEMOGLOBIN 29.1 pg (26.0-32.0); MEAN CORPUSCULAR HGB CONC 32.6 g/dL (32.0-36.0); MEAN CORPUSCULAR VOLUME 89.2 fL (78.0-93.0); MONOCYTES ABSOLUTE AUTO 0.3 x10^3/uL (0.0-0.8); MONOCYTES PERCENT AUTO 7.1 % (2.0-11.0); NEUTROPHILS ABSOLUTE AUTO 2.5 x10^3/uL (1.8-7.7); NEUTROPHILS PERCENT AUTO 54.4 % (50.0-80.0); PLATELET COUNT,PLT 291 x10^3/uL (130-400); RED BLOOD CELL COUNT 4.16 x10^6/uL (4.00-5.50); WHITE BLOOD CELL COUNT,WBC 4.5 x10^3/uL (4.0-10.0)
[2024-01-20 11:08] LABS: BLOOD UREA NITROGEN,BUN 12 mg/dL (7-18); CALCIUM 9.2 mg/dL (8.5-10.1); CARBON DIOXIDE,CO2 27 mmol/L (21-32); CHLORIDE,CL 104 mmol/L (98-107); CREATININE 1.2 mg/dL (0.55-1.02); GLUCOSE RANDOM 110 mg/dL (70-99); POTASSIUM,K 3.9 mmol/L (3.5-5.1); SODIUM,NA 142 mmol/L (136-145)
[2024-01-20 11:10] LABS: ANION GAP 14.9 mmol/L (5-15); ESTIMATED GFR 51 mL/min (>=60)
[2024-01-20 13:14] VITALS: BP 128/62; PULSE 82
== END 2024-01-20 12:31 | disposition home or self-care (01) ==
LOC: VM.ED 09:56
DX: R42 Dizziness and giddiness (principal); R07.81 Pleurodynia; J45.909 Unspecified asthma, uncomplicated; K21.9 Gastro-esophageal reflux disease without esophagitis; Z88.1 Allergy status to other antibiotic agents; Z91.041 Radiographic dye allergy status; Z88.8 Allergy status to other drugs, medicaments and biological substances; Z91.040 Latex allergy status; Z91.018 Allergy to other foods; Z79.899 Other long term (current) drug therapy; Z79.51 Long term (current) use of inhaled steroids
CPT/HCPCS: 36415; 70450; 71250; 80048; 85025; 99284; A9270